=== PATIENT | female | born 1985 | race Caucasian/White ===

== ENCOUNTER 2016-10-05 21:38 | Inpatient (IN) | payer OTHER ==
[2016-10-05 22:23] LABS: ROM Internal QC QC Line Present
[2016-10-05] MEDS ORDERED: Calcium Carbonate CHEW TAB* 500 MG (TUMS) PO PRN (22:42)
[2016-10-05 23:28] LABS: Hematocrit 38 % (35-47); Hemoglobin 12.4 g/dl (12.0-16.0); Mean Corpuscular HGB Conc 33 g/dl (31-36); Mean Corpuscular Hemoglobin 30 pg (27-31); Mean Corpuscular Volume 90 fL (80-97); Mean Platelet Volume 7 um3 (7.4-10.4); Red Blood Count 4.16 10^6/ul (4.0-5.4); Red Cell Distribution Width 13 % (10.5-15); White Blood Count 8.9 10^3/ul (3.5-10.8)
[2016-10-05] MEDS: Oxytocin in LR* 20 UNITS/1,000 ML BAG IVPB SCH (23:31)
[2016-10-06] MEDS ORDERED: OBEPIDURAL* 250 ML ONE (00:56)
[2016-10-06] MEDS ORDERED: EPHEDrine (Pressors)* 50 MG/ML VIAL IV PUSH PRN ×2 (02:05)
[2016-10-06] MEDS ORDERED: Famotidine TAB* 20 MG PO PRN (02:05)
[2016-10-06] MEDS ORDERED: Phenylephrine IV* 40 MCG/ML 10 ML SYRINGE IV PUSH PRN ×2 (02:05)
[2016-10-06] MEDS ORDERED: Sodium Citrate/Citric Acid* 15 ML UDC PO PRN (02:05)
[2016-10-06] MEDS ORDERED: OBEPIDURAL* 250 ML EPIDURAL SCH (03:00)
[2016-10-06] MEDS ORDERED: Gentamicin ADULT (*) 40 MG/ML VIAL IVPB ONE (05:16)
[2016-10-06] MEDS ORDERED: Clindamycin 900 MG IVPREMIX(* 900 MG/50 ML SDV IV ONE (05:30)
[2016-10-06] MEDS ORDERED: OXYTOCIN* 10 UNITS/ML 1 ML VIAL ONE ×2 (05:54→06:06)
[2016-10-06] MEDS ORDERED: Ondansetron INJ* 2 MG/ML VIAL ONE (06:04)
[2016-10-06] MEDS ORDERED: Phenylephrine IV* 40 MCG/ML 10 ML SYRINGE ONE (06:10)
[2016-10-06] MEDS ORDERED: Sodium Bicarbonate 8.4% IV* 50 ML VIAL ONE (06:14)
[2016-10-06] MEDS ORDERED: Lidocaine 2% EPI 1:200000 MPF* 20 ML VIAL ONE (06:14)
[2016-10-06] MEDS ORDERED: Morphine PF AMP (0.5MG/ML)* 5 MG/10 ML AMP ONE (06:15)
[2016-10-06] MEDS ORDERED: Dibucaine 1% 28.35 GM TUBE PR PRN (06:29)
[2016-10-06] MEDS ORDERED: Glycerin ADULT SUPP PR PRN (06:29)
[2016-10-06] MEDS ORDERED: Acetaminophen TAB* 325 MG PO PRN ×2 (06:29→06:42)
[2016-10-06] MEDS ORDERED: Witch Hazel PAD* JAR TOPICAL PRN (06:29)
[2016-10-06] MEDS ORDERED: Nalbuphine* 20 MG/ML 1 ML VIAL IV PRN (06:42)
[2016-10-06] MEDS ORDERED: HYDROmorphone* 1 MG/ML 1 ML SYR IV PRN (06:42)
[2016-10-06] MEDS ORDERED: diPHENhydraMINE IV* 50 MG/ML 1 ml VIAL (BENADRYL) IV PRN (06:42)
[2016-10-06] MEDS ORDERED: DiMENhydriNATE IV* 50 MG/ML VIAL IV PUSH PRN (06:42)
[2016-10-06] MEDS ORDERED: Naloxone* 0.4 MG/ML 1 ML VIAL IV PRN (06:42)
[2016-10-06] MEDS ORDERED: oxyCODONE TAB* 5 MG TAB PO PRN (06:42)
[2016-10-06] MEDS ORDERED: Ondansetron INJ* 2 MG/ML VIAL IV PRN (06:42)
[2016-10-06] MEDS ORDERED: HYDROmorphone* 2 MG/ML 1 ML SYR ONE ×2 (07:09→11:57)
[2016-10-06] MEDS ORDERED: Midazolam* 1 MG/ML 5 ML VIAL (5 MG) IV ONE (07:40)
[2016-10-06] MEDS ORDERED: HYDROmorphone* 1 MG/ML 1 ML SYR ONE ×2 (08:07→12:04)
[2016-10-06] MEDS ORDERED: Midazolam* 1 MG/ML 2 ML VIAL (2 MG) ONE (08:07)
[2016-10-06] MEDS ORDERED: fentaNYL* 50 MCG/ML 2 ML VIAL (100 MCG VIAL) ONE ×2 (08:07→12:04)
[2016-10-06] MEDS ORDERED: oxyCODONE TAB* 5 MG TAB ONE (10:01)
[2016-10-06] MEDS: Oxytocin in LR* 20 UNITS/1,000 ML BAG IVPB SCH (11:45)
[2016-10-06] MEDS: HYDROmorphone* 1 MG/ML 1 ML SYR IV SLOW PU PRN ×3 (12:00→21:26)
[2016-10-06] MEDS: Simethicone CHEW TAB* 80 MG PO SCH ×2 (18:32→21:16)
[2016-10-06] MEDS: Docusate CAP* 100 MG PO SCH (21:15)
[2016-10-06] MEDS ORDERED: Zolpidem TAB* 5 MG PO PRN (22:30)
[2016-10-06] MEDS ORDERED: oxyCODONE/Acetamin 5/325 MG* TAB PO PRN (22:30)
[2016-10-06] MEDS: oxyCODONE/Acetamin 5/325 MG* TAB PO PRN (22:39)
[2016-10-07] MEDS: oxyCODONE/Acetamin 5/325 MG* TAB PO PRN ×6 (02:40→22:48)
[2016-10-07 07:57] LABS: Hematocrit 32 % (35-47); Hemoglobin 10.6 g/dl (12.0-16.0); Mean Corpuscular HGB Conc 33 g/dl (31-36); Mean Corpuscular Hemoglobin 30 pg (27-31); Mean Corpuscular Volume 91 fL (80-97); Mean Platelet Volume 7 um3 (7.4-10.4); Red Blood Count 3.54 10^6/ul (4.0-5.4); Red Cell Distribution Width 14 % (10.5-15); White Blood Count 13.9 10^3/ul (3.5-10.8)
[2016-10-07] MEDS ORDERED: Ketorolac INJ* 30 MG/ML 1 ML VIAL IV ONE (08:00)
[2016-10-07] MEDS: Docusate CAP* 100 MG PO SCH ×3 (08:52→21:20)
[2016-10-07] MEDS: Simethicone CHEW TAB* 80 MG PO SCH ×4 (08:52→21:20)
[2016-10-07] MEDS: Ferrous Gluconate TAB* 324 MG TAB PO SCH ×2 (09:46→21:09)
--- NOTE | 2016-10-07 11:55 | OP ---
OPERATIVE REPORT: DATE OF OPERATION: 10/06/16 DATE OF : 83 SURGEON: Crescencio Arriaga MD SUPPLIER MANAGER: Ese Weaver CNM ANESTHESIA: Epidural. PRE-OP DIAGNOSES: Intrauterine at 39 weeks, labor, category 2 tracing with intermittent r epetitive deep decelerations. POST-OP DIAGNOSES: Intrauterine at 39 weeks, labor, category 2 tracing with intermittent repetitive deep decelerations. OPERATIVE PROCEDURE: Primary low-transverse section. ESTIMATED BLOOD LOSS: 600 cc. URINE OUTPUT: Clear. IV FLUIDS: 1600 cc of crystalloid fluid. SPECIMENS: Sent to pathology were cord gas and cord blood specimens. FINDINGS: Delivery of a viable male infant over clear fluid, weighing 6 pounds and 8 ounces with Ap gars of 9 and 9. The placenta was grossly intact with a 3-vessel cord noted. The uterus, adnexa, b owel and bladder were all within normal limits. There were no complications. DESCRIPTION OF PROCEDURE: The patient was taken to the operating room, she was identified, placed o n the operating table, an epidural was obtained. She was placed in the supine position with a leftw inna tilt, prepped and draped in the normal sterile fashion. A Pfannenstiel skin incision was made w ith a knife and carried through to the underlying layer of fascia. The fascia was nicked in the mid line and extended laterally with curved Joshi scissors. The fascia was grasped superiorly and inferi мария, dissected off sharply from the rectus muscle. The rectus muscle was then in the mid line bluntly. The peritoneum was identified, grasped with pickups, entered sharply with Metzenbaum scissors, and extended laterally bluntly. A bladder blade was inserted into the patient's abdomen. A low transverse uterine incision was made using the knife 3 cm above the bladder reflection. The uterine incision was extended laterally bluntly. The 's head was then grasped atraumatically. The rest of the 's body was then delivered. The cord was clamped and cut. The infant was t hen handed off to the awaiting hat and cap drying room attendant. Cord gas and cord bloods were obtained. The placenta was removed manually. The uterus was exteriorized and cleared of all clot and debris. The uterine incision was then closed using 0 Polysorb suture in a running locked fashion with a second imbricati ng layer of 0 Polysorb suture with good hemostasis noted. The uterus was returned to the patient's abdomen. The gutters were then cleared of all clot and debris using moist laparotomy sponges. All the sponge and instruments were removed from the patient's abdomen. The peritoneum was then closed using 3-0 Polysorb suture in a running fashion. The fascia was closed using 0 Polysorb suture in a running fashion and the skin was closed with a 4-0 Monocryl stitch. The patient tolerated the proce dure well. Sponge, lap, and needle counts were correct x2. She was then transferred to the recover y room area in stable condition. [id number]/[facility] #: [id number]
[2016-10-07] MEDS ORDERED: Ibuprofen TAB* 600 MG ONE (15:19)
[2016-10-07] MEDS: Ibuprofen TAB* 600 MG PO PRN (21:20)
[2016-10-08] MEDS: oxyCODONE/Acetamin 5/325 MG* TAB PO PRN ×3 (03:25→20:33)
[2016-10-08] MEDS: Ibuprofen TAB* 600 MG PO PRN ×3 (05:49→19:26)
[2016-10-08] MEDS: Docusate CAP* 100 MG PO SCH ×3 (09:28→20:33)
[2016-10-08] MEDS: Simethicone CHEW TAB* 80 MG PO SCH ×4 (09:28→20:33)
[2016-10-09] MEDS: Ferrous Gluconate TAB* 324 MG TAB PO SCH (00:14)
[2016-10-09] MEDS: oxyCODONE/Acetamin 5/325 MG* TAB PO PRN ×4 (00:42→12:56)
[2016-10-09] MEDS: Ibuprofen TAB* 600 MG PO PRN ×2 (02:14→08:14)
[2016-10-09 08:13] VITALS: BP 98/58
[2016-10-09] MEDS: Simethicone CHEW TAB* 80 MG PO SCH ×2 (08:40→12:54)
[2016-10-09] MEDS: Docusate CAP* 100 MG PO SCH ×2 (08:40→12:54)
== END 2016-10-09 15:32 | disposition home or self-care (01) | DRG 540 ==
LOC: MCHOBOUT 21:38 → MCHOB 22:37
PROVIDERS: ADMIT Midwife; ATTEND Obstetrics & Gynecology
PROC: 10D00Z1 Extraction of Products of Conception, Low, Open Approach (ICD-10-PCS; principal; 2016-10-06)
DX: O76 Abnormality in fetal heart rate and rhythm complicating labor and delivery (principal); Z88.0 Allergy status to penicillin; Z3A.39 39 weeks gestation of pregnancy; Z37.0 Single live birth; Z88.1 Allergy status to other antibiotic agents; Z88.6 Allergy status to analgesic agent
CPT/HCPCS: 36415; 76815; 84112; 85025; 86850; 86900; 86901; A9270-GY; J1170; J1580; J1885; J2250; J2405; J2590; J3010